=== PATIENT | male | born 1950 | race Two or more races ===

== ENCOUNTER 2021-06-14 11:36 | Inpatient (IN) | payer OTHER ==
[~2021-06-14] VITALS: Ht 167.6 cm; Wt 71.2 kg
[2021-06-14] MEDS ORDERED: TAMS0.4C PO (15:22)
[2021-06-14] MEDS ORDERED: COZAAR100 MG PO (15:22)
[2021-06-21] MEDS ORDERED: ABATINEX680 MG (07:53)
[2021-06-25] MEDS ORDERED: HYOSCYAMINE0.125 M1 SL (08:45)
[2021-06-25] MEDS ORDERED: TAMS0.4C PO (08:45)
[2021-06-25] MEDS ORDERED: ULTRACET PO (08:45)
== END 2021-06-25 12:46 | disposition home or self-care (01) | DRG 330 ==
LOC: ADM 13:00 → EDSTATUS 13:00 → O/R 06-21 05:46 → SURH 06-21 13:00
PROVIDERS: ADMIT Surgery; ATTEND Surgery
PROC: 0DBP4ZZ Excision of Rectum, Percutaneous Endoscopic Approach (ICD-10-PCS; 2021-06-21)
PROC: 07BC4ZZ Excision of Pelvis Lymphatic, Percutaneous Endoscopic Approach (ICD-10-PCS; 2021-06-21)
PROC: 0DTN4ZZ Resection of Sigmoid Colon, Percutaneous Endoscopic Approach (ICD-10-PCS; principal; 2021-06-21 16:45)
DX: D12.7 Benign neoplasm of rectosigmoid junction (principal); K57.20 Diverticulitis of large intestine with perforation and abscess without bleeding; R19.4 Change in bowel habit; R59.0 Localized enlarged lymph nodes; N40.0 Benign prostatic hyperplasia without lower urinary tract symptoms; I11.9 Hypertensive heart disease without heart failure; F17.200 Nicotine dependence, unspecified, uncomplicated

== ENCOUNTER 2021-06-19 05:55 | Day surgery (SDC) | payer OTHER ==
[~2021-06-19 05:55] MED LIST: COZAAR100 MG PO; TAMS0.4C PO
== END 2021-06-19 09:50 | disposition home or self-care (01) ==
LOC: CIR.AMB 05:55
PROVIDERS: ATTEND Surgery
DX: D12.0 Benign neoplasm of cecum (principal); K57.30 Diverticulosis of large intestine without perforation or abscess without bleeding